=== PATIENT | male | born 1975 | race Caucasian/White ===

== ENCOUNTER 2017-01-27 18:47 | Emergency (ER) | payer BC, OTHER ==
[2017-01-27 19:06] VITALS: BP 162/108
--- NOTE | 2017-01-27 21:00 | UC ---
Complaint Male HPI - HPI Summary HPI Summary: Patient comes in with severe left side abdominal pain for the past 2 hours. it has come and goes, sometimes hard to urinate, sometimes feels like he has to go all the time. - History of Current Complaint Chief Complaint: UCGU Stated Complaint: POSS UTI Hx Obtained From: Patient Onset/Duration: Sudden Onset, Lasting Hours Timing: Lasting Hours Severity Initially: Severe Location: Flank Character: Colicy Aggravating Factor(s): Voiding Associated Signs And Symptoms: Positive: Back Pain, Dysuria, Nausea - Risk Factors Testicular Torsion: Negative - Allergies/Home Medications Allergies/Adverse Reactions: Allergies Allergy/AdvReac Type Severity Reaction Status Date / Time No Known Allergies Allergy Verified 11/18/14 14:30 PMH/Surg Hx/FS Hx/Imm Hx Previously Healthy: Yes - Surgical History Surgical History: Yes Surgery Procedure, Year, and Place: R FINGER SURGERY X4 LAST ONE AT [facility] [place] - Family History Known Family History: Positive: Hypertension - Social History Alcohol Use: Occasionally Substance Use Type: None Smoking Status (MU): Former Smoker When Did the Patient Quit Smoking/Using Tobacco: 2011 Review of Systems Constitutional: Negative Skin: Negative Eyes: Negative ENT: Negative Respiratory: Negative Cardiovascular: Negative Gastrointestinal: Abdominal Pain - left oblique and flank Genitourinary: Dysuria, Hematuria, Frequency, Urgency Motor: Negative Neurovascular: Negative Musculoskeletal: Negative Neurological: Negative Psychological: Negative All Other Systems Reviewed And Are Negative: Yes Physical Exam Triage Information Reviewed: Yes Appearance: Well-Nourished, Ill-Appearing, Pain Distress Vital Signs: Initial Vital Signs Temp 96.8 F 01/27/17 19:03 Pulse 112 01/27/17 19:03 Resp 18 01/27/17 19:03 BP 162/108 01/27/17 19:03 Pulse Ox 98 01/27/17 19:03 Vital Signs Reviewed: Yes Eye Exam: Normal Eyes: Positive: Conjunctiva Clear ENT: Positive: Normal ENT inspection, Hearing grossly normal, Pharynx normal, TMs normal Dental Exam: Normal Neck exam: Normal Neck: Positive: Supple, Nontender, No Lymphadenopathy Respiratory Exam: Normal Respiratory: Positive: Chest non-tender, Lungs clear, Normal breath sounds Cardiovascular Exam: Normal Cardiovascular: Positive: No Murmur, Pulses Normal, Tachycardia Abdomen Description: Positive: Nontender, No Organomegaly, Soft, CVA Tenderness (L) - pos Bowel Sounds: Positive: Present Musculoskeletal Exam: Normal Musculoskeletal: Positive: Strength Intact, ROM Intact, No Edema Neurological Exam: Normal Neurological: Positive: Alert, Muscle Tone Normal Psychological Exam: Normal Skin Exam: Normal Complaint Male Course/Dx - Course Course Of Treatment: hx obtained, exam performed, meds reviewed, Ct unavailable consulted Dr Olson who recommended follow up in ER for proper evaluation and management of possible Renal stone. Patient in agreement. - Differential Dx/Diagnosis Differential Diagnosis/HQI/PQRI: Epididymitis, Prostatitis, Pyelonephritis, Testicular Torsion, Ureteral Calculi, Urinary Tract Infection Provider Diagnoses: dysuria, hematuria, flank pain - Physician Notifications Discussed Patient Care With: Dominique in ER Instructed by Provider To: Will See In ED Discharge - Discharge Plan Condition: Stable Disposition: AGAINST MEDICAL ADVICE
== END 2017-01-27 20:00 | disposition left against medical advice (07) ==
LOC: UCEAST 18:47
DX: R30.0 Dysuria (principal); R31.9 Hematuria, unspecified; R10.9 Unspecified abdominal pain; Z53.20 Procedure and treatment not carried out because of patient's decision for unspecified reasons; Z87.891 Personal history of nicotine dependence
CPT/HCPCS: 81003; 99212; G0463

== ENCOUNTER 2017-01-27 21:34 | Emergency (ER) | payer BC ==
[2017-01-27] MEDS ORDERED: Ketorolac INJ* 30 MG/ML 1 ML VIAL IV PUSH ONE (22:09)
[2017-01-27] MEDS ORDERED: NS 0.9% 1000 ML* 1,000 ML IV ONE (22:09)
--- NOTE | 2017-01-27 22:41 | RAD ---
CLINICAL HISTORY: Left flank pain and hematuria COMPARISON: None TECHNIQUE: Noncontrast CT examination of the abdomen and pelvis from the lung bases through the initial tuberosities. FINDINGS: VISUALIZED LUNG BASES: The visualized lung bases are grossly clear. There is no pleural effusion. ABDOMEN AND PELVIS: Evaluation of the solid organs and vasculature is limited without intravenous contrast. The liver is homogenously hypodense relative to the spleen, geographically more so in the right lobe relative to the left. The liver measures up to 21.7 cm in greatest axial dimension. There are no focal suspicious masses or surface irregularity. The spleen, pancreas and adrenal glands are grossly normal in appearance. The gallbladder is normal. The kidneys are normal in appearance without focal mass, calcification or signs of hydronephrosis. No renal calculi are seen in either collecting system, ureter or the urinary bladder. The small and large bowel are not distended.The patient's normal appendix is identified in the right lower quadrant measuring 7 mm in diameter (coronal image 53 and axial image 107). There are scattered rectosigmoid diverticula but none exhibit focal inflammatory change characteristic of diverticulitis. There is no gross retroperitoneal or mesenteric lymphadenopathy. There is coarse calcification in the prostate gland. Prostate is not pathologically enlarged. The abdominal aorta and iliac arteries are normal in course and diameter. Degenerative changes include multilevel loss of intervertebral disc height involving the lower thoracic and lumbar spine.There are no sinister bone lesions. IMPRESSION: 1. No renal calculi or CT signs of hydroureter nephrosis. 2. Geographic fatty infiltration of the liver. Please correlate to LFTs. 3. Diverticulosis without acute inflammatory change. 4. Additional chronic and degenerative changes described in the body the report unlikely to be directly related to the patient's current presentation.
--- NOTE | 2017-01-27 23:05 | ED ---
GI/ HPI - HPI Summary HPI Summary: 41M presents with left side flank pain for a day. He admits to pain with urination. He also admits to frequency. He was seen at and found to have hematuria. He denies any fever. He denies any history of kidney stones. He denies any n/v/d. He states he did have LLQ abdominal pain but that has resolved. He states the pain intensity varies. - History of Current Complaint Chief Complaint: EDUrogenitalProblems Time Seen by Provider: 01/27/17 22:04 Stated Complaint: BLOOD IN URINE-SENT FROM [facility] Pain Intensity: 2 - Allergy/Home Medications Allergies/Adverse Reactions: Allergies Allergy/AdvReac Type Severity Reaction Status Date / Time No Known Allergies Allergy Verified 01/27/17 21:37 PMH/Surg Hx/FS Hx/Imm Hx Endocrine/Hematology History: Denies: Hx Anticoagulant Therapy Sensory History: Denies: Hx Contacts or Glasses, Hx Hearing Aid Opthamlomology History: Denies: Hx Contacts or Glasses - Surgical History Surgery Procedure, Year, and Place: [place] [facility] [place] Anesthesia Reactions: No Infectious Disease History: No Infectious Disease History: Denies: Traveled Outside the [place] in Last 30 Days - Family History Known Family History: Positive: Hypertension - Social History Alcohol Use: Occasionally Substance Use Type: Reports: None Smoking Status (MU): Former Smoker Review of Systems Negative: Fever Negative: Chest Pain Negative: Shortness Of Breath Positive: Abdominal Pain. Negative: Vomiting, Diarrhea, Nausea Positive: dysuria, flank pain All Other Systems Reviewed And Are Negative: Yes Physical Exam Triage Information Reviewed: Yes Vital Signs On Initial Exam: Initial Vitals Temp Pulse Resp BP Pulse Ox 97.2 F 92 18 174/105 99 01/27/17 21:37 01/27/17 21:37 01/27/17 21:37 01/27/17 21:37 01/27/17 21:37 Vital Signs Reviewed: Yes Appearance: Positive: Well-Appearing Skin: Positive: Warm, Dry Head/Face: Positive: Normal Head/Face Inspection Eyes: Positive: Normal, EOMI, [place], Conjunctiva Clear ENT: Positive: Normal ENT inspection, Pharynx normal, TMs normal Respiratory/Lung Sounds: Positive: Clear to Auscultation, Breath Sounds Present Cardiovascular: Positive: Normal, RRR Abdomen Description: Positive: Nontender, Soft, CVA Tenderness (L) Bowel Sounds: Positive: Present - [place] Coma Scale Coma Scale Total: 15 Diagnostics - Vital Signs Vital Signs Temp Pulse Resp BP Pulse Ox 01/27/17 22:30 86 143/99 96 01/27/17 22:00 89 134/102 97 01/27/17 21:51 94 96 01/27/17 21:50 171/108 01/27/17 21:37 97.2 F 92 18 174/105 99 - Laboratory Result Diagrams: 01/27/17 22:51 01/27/17 22:51 Lab Statement: Any lab studies that have been ordered have been reviewed, and results considered in the medical decision making process. - Radiology abd Xray Interpretation: No Acute Changes - IMPRESSION: 1. No renal calculi or CT signs of hydroureter nephrosis. 2. Geographic fatty infiltration of the liver. Please correlate to LFTs. 3. Diverticulosis without acute inflammatory change. 4. Additional chronic and degenerative changes described in the body the report unlikely to be directly related to the patient's current presentation. Radiology Interpretation Completed By: Radiologist JUDIU Course/Dx - Course Course Of Treatment: 41M presents with left flank pain for a day. has never had this pain before. transferred from for CT to r/o kidney stone. on exam pos CVA tenderness on left. labs: wbc 12, crp 2. u/a no infection only blood. CT no stone or reason for pain. explained can not find a cause for pain and to follow up with primary. patient understands and agrees with plan - Diagnoses Differential Diagnoses - Male: Pyelonephritis, Ureteral Calculi, Urinary Tract Infection Provider Diagnoses: Flank pain, Hematuria Discharge - Discharge Plan Condition: Good Disposition: HOME Patient Education Materials: Flank Pain (ED) Referrals: Walter Martinez MD [Primary Care Provider] - Additional Instructions: Follow up with primary with in 5 days Follow up with urology about hematuria Take tyenlol or ibuprofen for pain every 6 hours as needed Return to ED if develop any new or worsening symptoms
[2017-01-27 23:07] LABS: Hematocrit 45 % (42-52); Hemoglobin 15.5 g/dl (14.0-18.0); Mean Corpuscular HGB Conc 34 g/dl (31-36); Mean Corpuscular Hemoglobin 30 pg (27-31); Mean Corpuscular Volume 86 fL (80-94); Mean Platelet Volume 8 um3 (7.4-10.4); Red Blood Count 5.23 10^6/ul (4.0-5.4); Red Cell Distribution Width 13 % (10.5-15); White Blood Count 12.6 10^3/ul (3.5-10.8)
[2017-01-27 23:19] LABS: Urine Bacteria Absent (Absent); Urine Bilirubin Negative (Negative); Urine Glucose Negative (Negative); Urine Nitrite Negative (Negative)
[2017-01-27 23:20] LABS: Albumin 4.3 g/dL (3.2-5.2); BUN/Creatinine Ratio 17.8 (8-20); Calcium 9.3 mg/dL (8.6-10.3); EGFR African American 98.9 (>60); EGFR Non-African American 76.9 (>60); Globulin 2.8 g/dL (2-4); Total Bilirubin 0.4 mg/dL (0.2-1.0); Total Protein 7.1 g/dL (6.4-8.9)
[2017-01-27 23:44] LABS: Potassium 3.9 mmol/L (3.5-5.0)
[2017-01-27 23:53] VITALS: BP 126/108
== END 2017-01-27 23:53 | disposition home or self-care (01) ==
LOC: ED 21:34
DX: R10.84 Generalized abdominal pain (principal); R31.9 Hematuria, unspecified; Z87.891 Personal history of nicotine dependence
CPT/HCPCS: 36415; 74176; 80053; 81003; 81015; 83690; 85025; 86141; 99282; J1885